=== PATIENT | male | born 1950 | race Two or more races ===

== ENCOUNTER 2023-09-07 12:17 | Inpatient (IN) | payer MEDICARE, OTHER ==
[2023-09-07] MEDS ORDERED: Baclofen 10 MG TAB PO PRN (15:33)
[2023-09-07] MEDS ORDERED: Acetaminophen 325 MG TAB PO PRN (15:33)
[2023-09-07] MEDS ORDERED: Bisacodyl 10 MG SUPP PR PRN (15:36)
[2023-09-07] MEDS ORDERED: Ondansetron ODT 4 MG TAB PO PRN (15:36)
[2023-09-07] MEDS ORDERED: Senokot S 8.6-50 MG TAB PO PRN (15:36)
[2023-09-07] MEDS ORDERED: Loperamide HCl 2 MG CAP PO PRN (15:36)
[2023-09-07] MEDS ORDERED: Glucagon 1 MG/ML KIT IM PRN (15:42)
[2023-09-07] MEDS ORDERED: Dextrose 5% in Water 1,000 ML IV PRN (15:42)
[2023-09-07] MEDS ORDERED: Dextrose 50% Abboject 50 ML SYRINGE SLOW IVP PRN (15:42)
[2023-09-07] MEDS ORDERED: TAZOBACTAM IVPB SCH (15:45)
[2023-09-07] MEDS ORDERED: CEFTOLOZANE IVPB SCH (15:45)
[2023-09-07] MEDS: DAPTOmycin 500 MG VIAL SLOW IVP SCH (18:20)
[2023-09-07] MEDS: Warfarin Sodium 5 MG TAB PO SCH (18:20)
[2023-09-07] MEDS ORDERED: Rosuvastatin 10 MG TAB PO SCH (21:00)
[2023-09-07] MEDS: Gabapentin 300 MG CAP PO SCH (21:06)
[2023-09-07] MEDS: Famotidine 20 MG TAB PO SCH (21:06)
[2023-09-07] MEDS: Lantus 1000 UNITS/10 ML VIAL SC SCH (21:07)
[2023-09-08 06:11] LABS: #Basophils 0.1 thou/uL (0.0-0.2); #Eosinphils 0.2 thou/uL (0.0-0.7); #Lymphocytes 1.3 thou/uL (1.20-3.40); #Monocytes 0.6 thou/uL (0.11-0.59); #Neutrophils 3.5 thou/uL (1.40-6.50); %Basophils 1.1 % (0.0-1.0); %Eosinophils 3.2 % (0.0-10.0); %Lymphocytes 23.3 % (21.0-51.0); %Monocytes 10.4 % (0.0-10.0); %Neutrophils 62.1 % (42.0-75.0); Hematocrit 26.6 % (42.0-52.0); Hemoglobin 8.5 g/dL (14.0-18.0); Mean Corpuscular Hemoglobin 25.9 pg (27.0-31.0); Platelet Count 404 10x3/uL (130-400); RBC Distribution Width 14.2 % (11.5-14.5); Red Blood Cell (RBC) Count 3.29 mill/uL (4.70-6.10); White Blood Cell (WBC) Count 5.6 10x3/uL (4.8-10.8)
[2023-09-08 06:24] LABS: INR-International Normal Ratio 2.6; Prothrombin Time 27.6 sec (12.0-14.7)
[2023-09-08 06:30] LABS: ALT (SGPT) 47 U/L (8-55); AST (SGOT) 26 U/L (5-34); Albumin 2.4 g/dL (3.4-4.8); Alkaline Phosphatase 92 U/L (40-110); Anion Gap 12 mmol/L (10-20); BUN (Urea Nitrogen) 18 mg/dL (8.4-25.7); Bilirubin, Total 0.3 mg/dL (0.2-1.2); Calc. Creatinine Clearance 59 mL/min (70-130); Calcium 8.2 mg/dL (7.8-10.44); Carbon Dioxide 24 mmol/L (23-31); Chloride 104 mmol/L (98-107); Estimated GFR 63; Globulin 3.5 g/dL (2.4-3.5); Glucose 141 mg/dL (83-110); Potassium 4.3 mmol/L (3.5-5.1); Protein, Total 5.9 g/dL (5.8-8.1); Sodium 136 mmol/L (136-145)
[2023-09-08] MEDS ORDERED: DAPTOMYCIN 350 MG IV SCH (09:00)
[2023-09-08] MEDS: Citalopram 20 MG TAB PO SCH (10:18)
[2023-09-08] MEDS: Lisinopril 5 MG TAB PO SCH (10:18)
[2023-09-08] MEDS: Empagliflozin 25 MG TAB PO SCH (10:19)
[2023-09-08] MEDS: Nystatin Powder 15 GM BOT TOP PRN (18:26)
[2023-09-09 05:17] LABS: INR-International Normal Ratio 2.3; Prothrombin Time 25.6 sec (12.0-14.7)
[2023-09-09] MEDS: HumaLOG 300 UNITS/3 ML VIAL SC PRN ×2 (09:21→21:26)
[2023-09-09 12:28] VITALS: BMI 28.8
[2023-09-10 05:32] LABS: INR-International Normal Ratio 2.3; Prothrombin Time 25.4 sec (12.0-14.7)
[2023-09-10] MEDS: HYDROcodone/Acetaminophen 10/325 mg Tablet PO PRN (21:52)
[2023-09-11 05:34] LABS: INR-International Normal Ratio 2.4; Prothrombin Time 26.4 sec (12.0-14.7)
[2023-09-12 05:29] LABS: INR-International Normal Ratio 2.6; Prothrombin Time 27.6 sec (12.0-14.7)
[2023-09-15 05:01] LABS: #Basophils 0.1 thou/uL (0.0-0.2); #Eosinphils 0.2 thou/uL (0.0-0.7); #Lymphocytes 1.3 thou/uL (1.20-3.40); #Monocytes 0.5 thou/uL (0.11-0.59); #Neutrophils 2.2 thou/uL (1.40-6.50); %Basophils 1.2 % (0.0-1.0); %Eosinophils 3.6 % (0.0-10.0); %Lymphocytes 29.7 % (21.0-51.0); %Monocytes 12.5 % (0.0-10.0); Hematocrit 27.3 % (42.0-52.0); Hemoglobin 8.9 g/dL (14.0-18.0); Mean Corpuscular HGB CONC 32.5 g/dL (32.0-36.0); Mean Corpuscular Hemoglobin 26.3 pg (27.0-31.0); Mean Platelet Volume 5.7 fL (7.4-10.4); Platelet Count 308 10x3/uL (130-400); RBC Distribution Width 15.3 % (11.5-14.5); Red Blood Cell (RBC) Count 3.37 mill/uL (4.70-6.10); White Blood Cell (WBC) Count 4.2 10x3/uL (4.8-10.8)
[2023-09-15 05:08] LABS: INR-International Normal Ratio 1.8; Prothrombin Time 20.9 sec (12.0-14.7)
[2023-09-15 05:16] LABS: ALT (SGPT) 33 U/L (8-55); AST (SGOT) 21 U/L (5-34); Albumin 2.7 g/dL (3.4-4.8); Alkaline Phosphatase 100 U/L (40-110); Anion Gap 15 mmol/L (10-20); BUN (Urea Nitrogen) 25 mg/dL (8.4-25.7); Bilirubin, Total 0.3 mg/dL (0.2-1.2); CK (CPK) 27 U/L (30-200); Calc. Creatinine Clearance 54 mL/min (70-130); Calcium 8.6 mg/dL (7.8-10.44); Carbon Dioxide 21 mmol/L (23-31); Chloride 107 mmol/L (98-107); Estimated GFR 57; Globulin 3.8 g/dL (2.4-3.5); Glucose 117 mg/dL (83-110); Potassium 4.4 mmol/L (3.5-5.1); Protein, Total 6.5 g/dL (5.8-8.1); Sodium 139 mmol/L (136-145)
[2023-09-15] MEDS ORDERED: Warfarin Sodium 3 MG TAB PO SCH (17:00)
[2023-09-20 03:30] VITALS: BP 135/82; TEMP 98
[2023-09-21] MEDS ORDERED: Empagliflozin 25 MG TAB PO SCH (09:00)
== END 2023-09-20 05:20 | disposition home health service (06) | DRG 301 ==
LOC: BURMED 15:14
PROVIDERS: ADMIT Family Medicine; ATTEND Family Medicine
DX: E11.52 Type 2 diabetes mellitus with diabetic peripheral angiopathy with gangrene (principal); R26.89 Other abnormalities of gait and mobility; F41.9 Anxiety disorder, unspecified; F32.A Depression, unspecified; E11.22 Type 2 diabetes mellitus with diabetic chronic kidney disease; N18.30 Chronic kidney disease, stage 3 unspecified; I12.9 Hypertensive chronic kidney disease with stage 1 through stage 4 chronic kidney disease, or unspecified chronic kidney disease; Z86.718 Personal history of other venous thrombosis and embolism; Z79.01 Long term (current) use of anticoagulants
CPT/HCPCS: 36415; 36416; 80053; 82550; 85025; 85610; 86140; J0695; J0878; J1815; J3490